=== PATIENT | male | born 1985 ===

== ENCOUNTER → 2018-10-21 16:40 | Outpatient (CLI) | payer OTHER, SELFPAY ==
--- NOTE | 2018-10-21 16:43 | DI.RAD.S_ITS ---
PROCEDURE: XR HUMERUS LT 2V INDICATIONS: l arm pain TECHNIQUE: 2 views of the humerus were acquired. COMPARISON: None. FINDINGS: Bones: No fractures or dislocations. No suspicious bony lesions. Soft tissues: No suspicious soft tissue calcifications. IMPRESSION: No acute humeral fracture or dislocation. Dictated by: Nima Colon M.D. on 10/21/2018 at 17:00 Approved by: Nima Colon M.D. on 10/21/2018 at 17:01
== END ==
LOC: RAD 16:42
PROVIDERS: Visit Provider Physician Assistant
DX: M79.602 Pain in left arm (principal)
CPT/HCPCS: 73060

== ENCOUNTER → 2022-01-18 08:51 | Outpatient (CLI) | payer SELFPAY ==
[2022-01-18 09:49] LABS: Influenza A - CEPHEID Flu A NEGATIVE (NEGATIVE); Influenza B - CEPHEID Flu B NEGATIVE (NEGATIVE); Respiratory Syncytial Virus Negative (Negative)
[2022-01-18 09:55] LABS: COVID-19 CEPHEID 4-PLEX PCR Negative (Negative)
== END ==
PROVIDERS: Visit Provider Nurse Practitioner Family
DX: R05.1 Acute cough (principal); Z20.822 Contact with and (suspected) exposure to COVID-19
CPT/HCPCS: 0241U